=== PATIENT | female | born 1965 | race African-American/Black ===

== ENCOUNTER 2019-01-31 17:16 | Emergency (ER) | payer MEDICAID ==
[~2019-01-31] VITALS: Ht 175.3 cm; Wt 82.0 kg
[2019-01-31] MEDS ORDERED: IBUPROFEN 600MG TABLET PO ONE (18:45)
[2019-01-31 21:22] VITALS: BP 158/85
== END 2019-01-31 21:27 | disposition home or self-care (01) ==
LOC: ER 20:25
DX: S00.03XA Contusion of scalp, initial encounter (principal); V29.88XA Motorcycle rider (driver) (passenger) injured in other specified transport accidents, initial encounter; Y93.89 Activity, other specified; Y92.89 Other specified places as the place of occurrence of the external cause; Y99.8 Other external cause status
CPT/HCPCS: 73521; 99284